=== PATIENT | female | born 1995 | race Caucasian/White ===

== ENCOUNTER 2024-10-02 13:57 | Outpatient (RCR) | payer OTHER, SELFPAY | END 2025-01-30 23:59 | disposition home or self-care (01) | PROVIDERS: Visit Provider Physician Assistant | DX: R14.0 Abdominal distension (gaseous) (principal); R12 Heartburn; R11.0 Nausea; R10.9 Unspecified abdominal pain; K59.00 Constipation, unspecified; Z51.89 Encounter for other specified aftercare | CPT/HCPCS: 97140; 97162 ==